=== PATIENT | female | born 1965 | race Caucasian/White ===

== ENCOUNTER → 2016-08-29 | Outpatient (CLI) | payer BC | LOC: COL.LAB 10:00 | DX: R19.7 Diarrhea, unspecified (principal) ==

== ENCOUNTER → 2016-08-30 | Outpatient (CLI) | payer BC | LOC: COL.RAD 07:22 | DX: K21.9 Gastro-esophageal reflux disease without esophagitis (principal) | CPT/HCPCS: Q9967 ==

== ENCOUNTER → 2020-02-26 | Outpatient (CLI) | payer BC | LOC: ZCOL.LAB 04:01 | DX: B34.9 Viral infection, unspecified (principal); Z20.828 Contact with and (suspected) exposure to other viral communicable diseases ==

== ENCOUNTER 2020-06-25 19:14 | Emergency (ER) | payer OTHER ==
[~2020-06-25] VITALS: Ht 175.3 cm; Wt 90.9 kg
[2020-06-25 21:27] VITALS: BP 136/74; PULSE 76; TEMP 97.6
== END 2020-06-25 22:36 | disposition home or self-care (01) ==
LOC: COL.ER 19:14
DX: S62.617A Displaced fracture of proximal phalanx of left little finger, initial encounter for closed fracture (principal); S50.02XA Contusion of left elbow, initial encounter; S90.32XA Contusion of left foot, initial encounter; W01.10XA Fall on same level from slipping, tripping and stumbling with subsequent striking against unspecified object, initial encounter; Y92.000 Kitchen of unspecified non-institutional (private) residence as the place of occurrence of the external cause